=== PATIENT | female | born 1985 | race Two or more races ===

== ENCOUNTER 2016-08-08 22:35 | Emergency (ER) | payer MEDICAID | END 2016-08-08 23:19 | disposition home or self-care (01) | LOC: ED 22:35 | DX: O98.813 Other maternal infectious and parasitic diseases complicating pregnancy, third trimester (principal); H65.01 Acute serous otitis media, right ear; Z3A.00 Weeks of gestation of pregnancy not specified ==

== ENCOUNTER 2016-09-17 05:03 | Outpatient (CLI) | payer MEDICAID ==
[2016-09-17 05:21] VITALS: BMI 38.0
== END 2016-09-17 11:15 | disposition home or self-care (01) ==
LOC: FBC 05:03 → FBCOUT 05:03
PROVIDERS: ATTEND Obstetrics & Gynecology
DX: O47.9 False labor, unspecified (principal); Z3A.00 Weeks of gestation of pregnancy not specified
CPT/HCPCS: 59025; G0463

== ENCOUNTER 2016-09-19 06:57 | Inpatient (IN) | payer MEDICAID ==
[2016-09-19] MEDS ORDERED: LIDOCAINE Viscous 2% 15 ML UDCUP ONE (07:28)
[2016-09-19] MEDS ORDERED: OXYTOCIN 10 UNITS/ML VIAL ONE (07:28)
[2016-09-19] MEDS ORDERED: MINERAL OIL 25 ML BOT ONE (07:28)
[2016-09-19] MEDS ORDERED: PUMP TUBING ONE (07:28)
[2016-09-19] MEDS ORDERED: IV START KIT ONE (07:28)
[2016-09-19] MEDS ORDERED: LACTATED RINGERS 1,000 ML ONE (07:28)
[2016-09-19] MEDS ORDERED: OXYTOCIN IN LR 500 ML IV ONE ×3 (07:28→09:03)
[2016-09-19] MEDS ORDERED: LIDOCAINE 1% (PRES FREE) 30 ML VIAL ONE (07:28)
[2016-09-19] MEDS ORDERED: OXYTOCIN IN LR 500 ML IV PRN ×2 (07:33→09:05)
[2016-09-19] MEDS ORDERED: LACTATED RINGERS 1,000 ML IV SCH ×2 (07:45→09:15)
[2016-09-19 07:51] LABS: HEMOGLOBIN 10.9 gm/l (12.0-16.0); MEAN CELL VOLUME 76.2 fl (81.0-99.0); MEAN CORPUSCULAR HEMOGLOBIN 24.4 pg (27.0-31.0); MEAN CORPUSCULAR HGB CONC 32.1 g/dl (33.0-37.0); RED CELL DISTRIBUTION WIDTH 15.5 % (11.5-14.5)
[2016-09-19 07:53] VITALS: BMI 39.2
[2016-09-19] MEDS ORDERED: EPIDURAL PUMP SET ONE (10:58)
[2016-09-19] MEDS ORDERED: FENTANYL/ROPIVACAINE EPIDURAL 250 ML EP ONE (10:58)
[2016-09-19] MEDS ORDERED: BUPIVACAINE 0.25% (PRES FREE) 30 ML VIAL ONE (11:17)
[2016-09-19] MEDS ORDERED: EPIDURAL PROCEDURE TRAY ONE (11:17)
--- NOTE | 2016-09-19 13:45 | PCMAN ---
OB Admission Note - History : 3 Term: 2 : 0 Abortions (S&E): 0 Livin Gestational Age (weeks): 39 Days (#/7): 6 Admit Cervical Dilation:: 3 Admit Cervical Effacement (%):: 70 Admit Station:: -2 Membrane Status: Intact Rupture (Date): 09/19/16 Contractions: No Heart Rate:: 140 - Labs Blood Type: O (+) positive
--- NOTE | 2016-09-19 13:46 | PCMDEL ---
Delivery Note - Delivery Delivery (Date): 09/19/16 Gender: Female Presentation: Cephalic Position: OA Umbilical Cord: 3 Vessel Delayed Cord Clamping:: < 1 min Placenta:: spontaneous and complete EBL:: 300ml Perineum:: intact Anesthesia/Meds:: epidural
[2016-09-19] MEDS ORDERED: BENZOCAINE/MENTHOL 60 APPLIC/BOT TP PRN (13:56)
[2016-09-19] MEDS ORDERED: MAGNESIUM HYDROXIDE 30 ML UDCUP PO PRN (13:56)
[2016-09-19] MEDS ORDERED: MEASLES,MUMPS&RUBELLA VACCINE 0.5 ML VIAL SUB-Q V ONE (13:56)
[2016-09-19] MEDS ORDERED: DIPHTH,PERTUSS(ACELL),TET VAC 0.5 ML VIAL IM V ONE (13:56)
[2016-09-19] MEDS ORDERED: HYDROCODONE/ACETAMINOPHEN 5/325MG TABLET PO PRN (13:56)
[2016-09-19] MEDS ORDERED: LANOLIN 50 APPLIC/7G TUBE TP PRN (13:56)
[2016-09-19] MEDS ORDERED: FLU VACC 2016-17 (36MO-64Y)/PF 60 MCG/0.5 ML SYRINGE IM V ONE (14:52)
[2016-09-19] MEDS: IBUPROFEN 800 MG TABLET PO PRN (16:16)
[2016-09-20] MEDS: IBUPROFEN 800 MG TABLET PO PRN ×4 (00:54→23:12)
[2016-09-20 06:36] LABS: HEMATOCRIT 32.5 % (37.0-47.0); HEMOGLOBIN 10.6 gm/l (12.0-16.0)
[2016-09-20] MEDS ORDERED: LACTATED RINGERS 1,000 ML ONE (08:24)
--- NOTE | 2016-09-20 08:57 | PDOC44 ---
- Subjective Day: 1 Reports Pain Tolerable, Reports , Reports Lochia Light, Reports Tolerating Regular Diet - Objective Temp Pulse Resp BP Pulse Ox 98.6 F 84 18 117/70 09/20/16 08:08 09/20/16 08:08 09/20/16 08:08 09/20/16 08:08 Lab Results 09/20/16 06:15 Hgb 10.6 L Hct 32.5 L Current Medications Generic Name Dose Route Start Last Admin Trade Name Freq PRN Reason Stop Dose Admin Acetaminophen/Hydrocodone Bitart 1 - 2 tab 09/19/16 13:56 09/19/16 20:19 [place] 5/325 PO 1 tab Q4H PRN Administration Pain (Moderate) Benzocaine/Menthol 1 applic 09/19/16 13:56 Dermoplast TP PRN PRN Patient Comfort Docusate Sodium 100 mg 09/20/16 09:00 Colace PO DAILY AYE Emollient Ointment 1 applic 09/19/16 13:56 [id number] TP PRN PRN sore nipples Ibuprofen 800 mg 09/19/16 13:56 09/20/16 00:54 Motrin PO 800 mg Q6H PRN Administration Pain (Mild) Magnesium Hydroxide 30 ml 09/19/16 13:56 Milk Of Magnesia PO BEDTIME PRN Constipation - Physical Exam General: Afebrile Psych/Mental Status: Mood/Affect Appropriate Breast: Soft Fundus: Firm Abdomen: Normal Bowel Sounds Genitourinary: Normal Female Genitalia Disposition: Stable, Anticipate DC Home Tomorrow
[2016-09-20] MEDS ORDERED: DOCUSATE SODIUM 100 MG CAPSULE PO SCH (09:00)
[2016-09-21 07:25] VITALS: BP 116/70
[2016-09-21] MEDS: IBUPROFEN 800 MG TABLET PO PRN (07:25)
--- NOTE | 2016-09-21 08:32 | PDOC44 ---
- Subjective Day: 2 Reports Pain Tolerable, Reports , Reports Lochia Light, Reports Tolerating Regular Diet - Objective Temp Pulse Resp BP Pulse Ox 98.1 F 88 16 116/70 09/21/16 07:19 09/21/16 07:19 09/21/16 07:19 09/21/16 07:19 Current Medications Generic Name Dose Route Start Last Admin Trade Name Freq PRN Reason Stop Dose Admin Acetaminophen/Hydrocodone Bitart 1 - 2 tab 09/19/16 13:56 09/19/16 20:19 [place] 5/325 PO 1 tab Q4H PRN Administration Pain (Moderate) Benzocaine/Menthol 1 applic 09/19/16 13:56 Dermoplast TP PRN PRN Patient Comfort Docusate Sodium 100 mg 09/20/16 09:00 09/20/16 10:31 Colace PO 100 mg DAILY AYE Administration Emollient Ointment 1 applic 09/19/16 13:56 09/21/16 03:20 Obi-Z-Hyevne TP 1 tube PRN PRN Administration sore nipples Ibuprofen 800 mg 09/19/16 13:56 09/21/16 07:25 Motrin PO 800 mg Q6H PRN Administration Pain (Mild) Magnesium Hydroxide 30 ml 09/19/16 13:56 Milk Of Magnesia PO BEDTIME PRN Constipation - Physical Exam General: Afebrile Psych/Mental Status: Mood/Affect Appropriate Breast: Soft Fundus: Firm Abdomen: Normal Bowel Sounds Genitourinary: Normal Female Genitalia Disposition: Stable, Anticipate DC to Home
== END 2016-09-21 10:25 | disposition home or self-care (01) | DRG 775 ==
LOC: FBC 06:57 → EDSTATUS 09-20 10:08
PROVIDERS: ADMIT Obstetrics & Gynecology; ATTEND Obstetrics & Gynecology
PROC: 10E0XZZ Delivery of Products of Conception, External Approach (ICD-10-PCS; principal; 2016-09-19)
DX: O80 Encounter for full-term uncomplicated delivery (principal); Z37.0 Single live birth; Z3A.39 39 weeks gestation of pregnancy